=== PATIENT | male | born 2005 | race Caucasian/White ===

== ENCOUNTER 2023-08-09 09:04 | Emergency (ER) | payer OTHER ==
[~2023-08-09] VITALS: Ht 170.2 cm; Wt 68.0 kg
[2023-08-09 10:06] VITALS: BP 110/89
[2023-08-09] MEDS ORDERED: Ondansetron 4 MG SoluTab SL ONE (10:10)
[2023-08-09] MEDS ORDERED: Buprenorphine HCL/Naloxone HCL 8MG-2MG Tab SL ONE (11:20)
[2023-08-09] MEDS ORDERED: BUPRENORPHIN-N1 EAC1 SL (11:23)
[2023-08-09 11:44] LABS: Bun/Creatinine Ratio 16.3 (12.0-20.0); Calcium, Blood 10.2 mg/dL (8.5-10.1); Creatinine, Blood 0.68 mg/dL (0.60-1.20); Potassium, Blood 3.9 mmol/L (3.5-5.5)
== END 2023-08-09 11:45 | disposition home or self-care (01) ==
LOC: ER 09:04
PROVIDERS: Physician Assistant
DX: F11.13 Opioid abuse with withdrawal (principal); Z79.899 Other long term (current) drug therapy
CPT/HCPCS: 80048; 99283; A9270